=== PATIENT | female | born 1990 | race Caucasian/White ===

== ENCOUNTER 2023-12-13 08:33 | Inpatient (IN) | payer OTHER ==
[2023-12-13] MEDS ORDERED: MAGNESIUM HYDROXIDE/AL HYDROX 30 ML CUP PO PRN ×2 (09:30→21:45)
[2023-12-13] MEDS ORDERED: CALCIUM CARBONATE 500 MG CHEW PO PRN ×2 (09:30→21:45)
[2023-12-13] MEDS ORDERED: LACTATED RINGER'S 1,000 ML IV PRN (09:30)
[2023-12-13] MEDS ORDERED: OXYTOCIN/DEXTROSE 5% 20 UNITS/100 ML BAG IV SCH (09:30)
[2023-12-13 09:52] LABS: CREATININE, RANDOM URINE 40.46 mg/dL (NOT ESTABLISHED); PROTEIN/CREATININE RATIO 0.24 mg/mg (0.010-0.107)
[2023-12-13 10:04] LABS: AMPHETAMINES, URINE NEGATIVE (NEGATIVE); BARBITURATES, URINE NEGATIVE (NEGATIVE); BENZODIAZEPINE, URINE NEGATIVE (NEGATIVE); BUPRENORPHINE, URINE NEGATIVE (NEGATIVE); CANNABINOID, URINE NEGATIVE (NEGATIVE); COCAINE, URINE NEGATIVE (NEGATIVE); ECSTASY, URINE NEGATIVE (NEGATIVE); FENTANYL, URINE NEGATIVE (NEGATIVE); METHADONE, URINE NEGATIVE (NEGATIVE); OPIATES, URINE NEGATIVE (NEGATIVE); OXYCODONE, URINE NEGATIVE (NEGATIVE); PHENCYCLIDINE, URINE NEGATIVE (NEGATIVE)
[2023-12-13 10:45] LABS: HEMATOCRIT 37.2 % (35.0-50.0); HEMOGLOBIN 12.9 g/dL (12.0-18.0); MCH 30.3 (27-36); MCHC 34.6 g/dl (30-36); MCV 87.5 fl (81-99); RBC 4.25 M/ul (4.3-5.7); RDW 13.7 (10.5-15.0)
[2023-12-13 11:05] LABS: ALBUMIN 2.5 g/dL (3.4-5.0); ALBUMIN/GLOBULIN RATIO 0.68 (1.1-2.4); ANION GAP 14.7 (7-21); BILIRUBIN, TOTAL 0.3 ng/dL (0.2-1.0); BUN/CREATININE RATIO 19.35 (6.0-28.6); CALCIUM 8.9 mg/dL (8.5-10.1); CREATININE, SERUM 0.62 mg/dL (0.55-1.02); POTASSIUM 3.7 mmol/L (3.5-5.1); PROTEIN, TOTAL 6.2 g/dL (6.4-8.2)
--- NOTE | 2023-12-13 11:13 | PR ---
[facility] [address] [place], [place] [address] Signed Progress Notes IP Datetime Report Generated by CPN: 12/13/2023 11:13 PROGRESS NOTES: [id number] Impression: Normal Progression of Labor; Reassuring Heart Rate Procedures: Artificial ROM; Sterile Vag Exam Plan: Continue Present Management Informed Consent Obtain: Vaginal Delivery VITAL SIGNS: [id number] Vital Signs: Reviewed; Within Normal Limits EXAM: [id number] Dilatation: 3.0 Contractions: Irregular MEMBRANES: [id number] Comments: Pt seen and examined. Doing well. Reviewed labs, BP, and FHT. Recommended AROM which was performed w/out difficulty. All questions answered. FETUS A: [id number] FHR Baseline: 130 Variability: Moderate 6-25bpm Accelerations: 15X15 Decelerations: None FHR Category: Category I Presentation: Vertex Comments on Fetus A: No evidence of metabolic acidosis FETUS B: [id number] Signing Physician: Ernst Sethi DO Copies: ~ *Electronically Signed* 12/13/23 1113 ERNST SETHI (LESLEY) DO PATIENT NAME: ARMANDO BATES PROGRESS NOTE DATE OF : 89 PHYSICIAN: ERNST SETHI) DO RPT #: [id number] REPORT IS CONFIDENTIAL AND NOT TO BE RELEASED WITHOUT AUTHORIZATION
[2023-12-13 11:33] LABS: ABO A; ANTIBODY SCREEN NEGATIVE; RH POSITIVE
--- NOTE | 2023-12-13 15:37 | PR ---
[facility] [address] [facility] [place], [place] [address] Signed Progress Notes IP Datetime Report Generated by CPN: 12/13/2023 15:37 PROGRESS NOTES: [id number] Impression: Normal Progression of Labor; Reassuring Heart Rate Procedures: Sterile Vag Exam Plan: Continue Present Management Other Plans: epidural on demand / consider pit if unchanged at next check Informed Consent Obtain: Vaginal Delivery VITAL SIGNS: [id number] Vital Signs: Reviewed; Within Normal Limits EXAM: [id number] Dilatation: 4.0 Effacement: 70 Station: -3 Contractions: q 4-5 min MEMBRANES: [id number] Comments: Pt seen and examined. Doing well. Contractions becoming more regular and uncomfortable. Discussed interval progress and options. Pt would like to continue expectant management. Consider pitocin at next check if unchanged. FETUS A: [id number] FHR Baseline: 130 Variability: Moderate 6-25bpm Accelerations: 15X15 Decelerations: None FHR Category: Category I Presentation: Vertex Comments on Fetus A: No evidence of metabolic acidosis FETUS B: [id number] Signing Physician: Ernst Sethi DO Copies: ~ *Electronically Signed* 12/13/23 4055 ERNST SETHI (LESLEY) DO PATIENT NAME: ARMANDO BATES PROGRESS NOTE DATE OF : 91 PHYSICIAN: ERNST SETHI (JD) DO RPT #: [id number] REPORT IS CONFIDENTIAL AND NOT TO BE RELEASED WITHOUT AUTHORIZATION
[2023-12-13] MEDS ORDERED: ROPIVACAINE 0.2% 200 ML BAG ONE (17:19)
[2023-12-13] MEDS ORDERED: fentaNYL citrate 100 MCG/2 ML VIAL ONE (17:19)
[2023-12-13] MEDS ORDERED: LACTATED RINGER'S 500 ML IV PRN (18:00)
[2023-12-13] MEDS ORDERED: LACTATED RINGER'S 2,000 ML IV ONE (18:00)
[2023-12-13] MEDS ORDERED: ePHEDrine sulfate 5 MG/ML SYRINGE IV PRN (18:00)
[2023-12-13] MEDS ORDERED: ROPIVACAINE 0.2% 200 ML BAG EPIDURAL SCH (18:00)
--- NOTE | 2023-12-13 18:06 | PR ---
[facility] [address] [facility] [place], [place] [address] Signed Progress Notes IP Datetime Report Generated by CPN: 12/13/2023 18:06 PROGRESS NOTES: [id number] Impression: Normal Progression of Labor; Reassuring Heart Rate Procedures: Sterile Vag Exam Plan: Continue Present Management Other Plans: epidural on demand / consider pit if unchanged at next check Informed Consent Obtain: Vaginal Delivery VITAL SIGNS: [id number] Vital Signs: Reviewed; Within Normal Limits EXAM: [id number] Dilatation: 5.0 Effacement: 80 Station: -2 Contractions: q 2 min MEMBRANES: [id number] Comments: Pt seen and examined. Doing well. Comfortable w/ epidural. No SALGUERO, RUQ pain or visual changes. No concerns. Reviewed cervical change and BPs. No questions or concerns. FETUS A: [id number] FHR Baseline: 130 Variability: Moderate 6-25bpm Accelerations: 15X15 Decelerations: None FHR Category: Category I Presentation: Vertex Comments on Fetus A: No evidence of metabolic acidosis FETUS B: [id number] Signing Physician: Ernst Sethi DO Copies: ~ *Electronically Signed* 12/13/23 3781 ERNST SETHI (LESLEY) DO PATIENT NAME: ARMANDO BATES PROGRESS NOTE DATE OF : 91 PHYSICIAN: ERNST SETHI) DO RPT #: [id number] REPORT IS CONFIDENTIAL AND NOT TO BE RELEASED WITHOUT AUTHORIZATION
--- NOTE | 2023-12-13 20:50 | PR ---
[facility] [address] [place], [place] [address] Signed Progress Notes IP Datetime Report Generated by CPN: 12/13/2023 20:50 PROGRESS NOTES: [id number] Impression: Normal Progression of Labor; Reassuring Heart Rate Procedures: Sterile Vag Exam Plan: Continue Present Management; Anticipate Vaginal Delivery Other Plans: epidural on demand / consider pit if unchanged at next check Informed Consent Obtain: Vaginal Delivery VITAL SIGNS: [id number] Vital Signs: Reviewed; Within Normal Limits EXAM: [id number] Dilatation: 10.0 Effacement: 80 Station: -2 Contractions: q 2-3 min MEMBRANES: [id number] Comments: Pt seen and examined. Doing well. Comfortable w/ contractions. Pt now complete. Noted relative hypotension and will monitor during 2nd stage of labor. All questions answered. Will start pushing efforts FETUS A: [id number] FHR Baseline: 130 Variability: Minimal - >Undetectable to <=5bpm Accelerations: 15X15 Decelerations: None FHR Category: Category II Presentation: Vertex Comments on Fetus A: No evidence of metabolic acidosis FETUS B: [id number] Signing Physician: Ernst Sethi DO Copies: ~ *Electronically Signed* 12/13/232049 ERNST SETHI (LESLEY) DO PATIENT NAME: ARMANDO BATES PROGRESS NOTE DATE OF : 91 PHYSICIAN: ERNST SETHI (JD) DO RPT #: [id number] REPORT IS CONFIDENTIAL AND NOT TO BE RELEASED WITHOUT AUTHORIZATION
[2023-12-13] MEDS ORDERED: IBUPROFEN 600 MG TAB PO PRN (21:45)
[2023-12-13] MEDS ORDERED: WITCH HAZEL/GLYCERIN 1 EA PAD TOP PRN (21:45)
[2023-12-13] MEDS ORDERED: HYDROCORTISONE ACETATE 25 MG SUPP PR PRN (21:45)
[2023-12-13] MEDS ORDERED: OXYCODONE HCL 5 MG TAB PO PRN (21:45)
[2023-12-13] MEDS ORDERED: BENZOCAINE/LANOLIN/ALOE VERA 60 ML AEROSOL TOP PRN (21:45)
[2023-12-13] MEDS ORDERED: ACETAMINOPHEN 325 MG TAB PO PRN (21:45)
[2023-12-13] MEDS ORDERED: MAGNESIUM HYDROXIDE 30 ML UDC PO PRN (21:45)
[2023-12-13] MEDS ORDERED: HYDROCODONE/ACETA 5/325 TAB PO PRN (21:45)
[2023-12-13] MEDS ORDERED: OXYTOCIN/0.9 % SODIUM CHLORIDE 500 ML IV SCH (21:45)
[2023-12-13] MEDS ORDERED: OXYCODONE/APAP 5/325 TAB PO PRN (21:45)
[2023-12-14 05:18] LABS: HEMATOCRIT 33.2 % (35.0-50.0); HEMOGLOBIN 11.4 g/dL (12.0-18.0); MCH 30.2 (27-36); MCHC 34.3 g/dl (30-36); MCV 88.2 fl (81-99); RBC 3.76 M/ul (4.3-5.7); RDW 13.7 (10.5-15.0)
[2023-12-14 08:23] VITALS: BP 136/79
[2023-12-14] MEDS ORDERED: SENNOSIDES/DOCUSATE 1 EA TAB PO SCH (09:00)
--- NOTE | 2023-12-14 11:09 | PR ---
[facility] [address] [place], [place] [address] Signed PP Progress Notes Datetime Report Generated by CPN: 12/14/2023 11:09 SUBJECTIVE: [id number] Pain: Within Normal Limits Nausea/Vomiting: Denies Flatus: Yes Vital Signs: [id number] Vital Signs: Reviewed; Within Normal Limits Cardiovascular: Normal Respiratory: Normal Abdomen/Uterus: Normal Lochia: Normal Vulva/Perineum: Not Done Breasts: Not Done CVA Tenderness: Not Done Incision: Not Applicable Progress: Normal IMPRESSION/PLAN/PROCEDURES: [id number] Impression: Normal Progression Plan: Discharge Procedures: None Progress Notes: S: 33 yo s/p vaginal delivery. day #1. Doing well. Denies SALGUERO, CP, SOB, F/C, N/V, RUQ pain, changes in vision, vaginal discharge. Tolerating regular diet, ambulating, voiding on own, pain controlled. O: AFVSS Abd: Soft. Non-tender to palpation. Fundus firm and below umbilicus. Musc: Moving all extremities. A/P: 33 yo s/p vaginal delivery. day #1. Doing well. Meeting all hospital milestones. Will discharge home today. Signing Physician: Rory Montejo MD Copies: ~ *Electronically Signed* 12/14/23 1109 RORY MONTEJO MD PATIENT NAME: ARMANDO BATES PROGRESS NOTE DATE OF : 91 PHYSICIAN: RORY MONTEJO MD RPT #: [id number] REPORT IS CONFIDENTIAL AND NOT TO BE RELEASED WITHOUT AUTHORIZATION
== END 2023-12-14 22:00 | disposition home or self-care (01) | DRG 807 ==
LOC: FBCO 08:33 → FBC 09:14
PROVIDERS: ADMIT Obstetrics & Gynecology; ATTEND Obstetrics & Gynecology
PROC: 10E0XZZ Delivery of Products of Conception, External Approach (ICD-10-PCS; principal; 2023-12-13)
PROC: 0KQM0ZZ Repair Perineum Muscle, Open Approach (ICD-10-PCS; 2023-12-13)
PROC: 3E0R3BZ Introduction of Anesthetic Agent into Spinal Canal, Percutaneous Approach (ICD-10-PCS; 2023-12-13)
PROC: 00HU33Z Insertion of Infusion Device into Spinal Canal, Percutaneous Approach (ICD-10-PCS; 2023-12-13)
PROC: 10907ZC Drainage of Amniotic Fluid, Therapeutic from Products of Conception, Via Natural or Artificial Opening (ICD-10-PCS; 2023-12-13)
DX: O13.4 Gestational [pregnancy-induced] hypertension without significant proteinuria, complicating childbirth (principal); Z37.0 Single live birth; Z3A.38 38 weeks gestation of pregnancy; O70.1 Second degree perineal laceration during delivery; O76 Abnormality in fetal heart rate and rhythm complicating labor and delivery
CPT/HCPCS: 01960; 36415; 59025; 80053; 80307; 82570; 84156; 84550; 85027; 86850; 86900; 86901; A9270; G0463; J2590; J2795; J3010; J7121